=== PATIENT | male | born 1980 | race Caucasian/White ===

== ENCOUNTER 2018-09-12 08:08 | Emergency (ER) | payer OTHER ==
[~2018-09-12] VITALS: Ht 175.3 cm; Wt 93.2 kg
[2018-09-12] MEDS ORDERED: PRILOSEC 20MG20 MG PO (08:17)
[2018-09-12] MEDS ORDERED: NORCO 325 MG-51 TAB PO (09:59)
[2018-09-12 10:30] VITALS: BP 166/105; PULSE 90
== END 2018-09-12 10:35 | disposition home or self-care (01) ==
LOC: COL.ER 08:08
DX: S82.851A Displaced trimalleolar fracture of right lower leg, initial encounter for closed fracture (principal); W00.0XXA Fall on same level due to ice and snow, initial encounter
CPT/HCPCS: J1170; J2250; J2405; J2704; J7030; Q4045

== ENCOUNTER → 2020-07-08 | Outpatient (CLI) | payer BC ==
[~2020-07-08] MED LIST: NORCO 325 MG-51 TAB PO; PRILOSEC 20MG20 MG PO
== END ==
LOC: DIA.ED
DX: E11.9 Type 2 diabetes mellitus without complications (principal)
CPT/HCPCS: G0108

== ENCOUNTER → 2020-07-24 | Outpatient (CLI) | payer BC | LOC: DIA.ED 10:41 | DX: E11.9 Type 2 diabetes mellitus without complications (principal); Z79.84 Long term (current) use of oral hypoglycemic drugs; E78.5 Hyperlipidemia, unspecified | CPT/HCPCS: G0108 ==